=== PATIENT | female | born 1995 | race Caucasian/White ===

== ENCOUNTER 2021-05-02 11:12 | Inpatient (IN) | payer BC ==
[2021-05-02] MEDS ORDERED: Butorphanol Tartrate 1 MG/ML VIAL SLOW IVP PRN (11:55)
[2021-05-02] MEDS ORDERED: Ondansetron PF 4 MG/2 ML Vial IVP PRN (11:55)
[2021-05-02] MEDS ORDERED: HYDROcodone/Acetaminophen 5/325 mg Tablet PO PRN (11:55)
[2021-05-02] MEDS ORDERED: Ibuprofen 800 MG TAB PO PRN (11:55)
[2021-05-02] MEDS ORDERED: Lidocaine 1% (PF) 30 ML VIAL SC PRN (11:55)
[2021-05-02] MEDS ORDERED: hydrALAZINE 20 MG/ML VIAL SLOW IVP PRN ×2 (11:55→12:51)
[2021-05-02] MEDS ORDERED: Lactated Ringer's 1,000 ML IV SCH ×2 (12:00→13:00)
[2021-05-02] MEDS ORDERED: Fentanyl 2 mcg/Bup 0.1% Cadd 100 ML ONE (12:17)
[2021-05-02 12:21] LABS: Hemoglobin 14.7 g/dL (12.0-15.5); Mean Corpuscular HGB CONC 35.1 g/dL (32.0-36.0); Mean Corpuscular Hemoglobin 31.8 pg (27.0-33.0); Mean Corpuscular Volume 90.7 fl (81.6-98.3); Mean Platelet Volume 10.7 fl (7.4-10.4); Platelet Count 181 10x3/uL (150-450); RBC Distribution Width 13.2 % (11.5-14.5); Red Blood Cell (RBC) Count 4.62 10x6/uL (3.90-5.03); White Blood Cell (WBC) Count 11.5 10x3/uL (3.5-10.5)
[2021-05-02] MEDS ORDERED: NS w/ Oxytocin 30 units 1,000 ML ONE (12:22)
[2021-05-02] MEDS ORDERED: Bisacodyl 10 MG SUPP PR PRN (12:51)
[2021-05-02] MEDS ORDERED: Boostrix 0.5 ML (Tdap) VIAL IM ONE (12:51)
[2021-05-02] MEDS ORDERED: Lanolin Ointment 7 GM TUBE TOP PRN (12:51)
[2021-05-02] MEDS ORDERED: Zolpidem Tartrate 5 MG TAB PO PRN (12:51)
[2021-05-02] MEDS ORDERED: traMADol HCl 50 MG TAB PO PRN (12:51)
[2021-05-02] MEDS ORDERED: Milk Of Magnesia 30 ML UDCUP PO PRN (12:51)
[2021-05-02 12:55] LABS: Hep B Surf Ag Non-Reactive S/CO (NonReactive); Syphilis Antibody Nonreactive (Nonreactive); Syphilis Antibody Index 0.02 S/CO (<1.00 Non-Reactive)
[2021-05-02] MEDS ORDERED: NS w/ Oxytocin 30 units 500 ML IV SCH (13:00)
[2021-05-02 13:01] LABS: HBSAg Index 0.19 S/CO (0-0.99)
[2021-05-02 15:36] VITALS: BMI 25.0
[2021-05-02] MEDS: Ferrous Sulfate 325 MG TAB PO SCH (16:59)
[2021-05-02] MEDS: Ibuprofen 800 MG TAB PO SCH (21:11)
[2021-05-02] MEDS: Docusate Calcium (SURFAK) 240 MG CAP PO SCH (21:11)
[2021-05-03] MEDS: Ibuprofen 800 MG TAB PO SCH (05:13)
[2021-05-03] MEDS: Ferrous Sulfate 325 MG TAB PO SCH (07:45)
[2021-05-03] MEDS: Docusate Calcium (SURFAK) 240 MG CAP PO SCH (08:58)
[2021-05-03] MEDS ORDERED: Prenatal Vitamin 1 TAB PO SCH (09:00)
[2021-05-03 11:13] VITALS: BP 106/62; TEMP 98.7
== END 2021-05-03 14:00 | disposition home or self-care (01) | DRG 807 ==
LOC: CSHLD/OP 11:12 → CSHLD 11:13 → CSHPP 15:10
PROVIDERS: ADMIT Obstetrics & Gynecology; ATTEND Obstetrics & Gynecology
PROC: 10E0XZZ Delivery of Products of Conception, External Approach (ICD-10-PCS; principal; 2021-05-02)
PROC: 0KQM0ZZ Repair Perineum Muscle, Open Approach (ICD-10-PCS; 2021-05-02)
DX: O70.1 Second degree perineal laceration during delivery (principal); Z37.0 Single live birth; Z3A.40 40 weeks gestation of pregnancy
CPT/HCPCS: 85027; 86780; 86850; 86900; 86901; 87340; 99285; J2001; J2590; U0003; U0005